=== PATIENT | male | born 1965 | race Hispanic/Latino ===

== ENCOUNTER 2020-06-29 18:36 | Emergency (ER) | payer BC ==
[~2020-06-29] VITALS: Ht 167.6 cm; Wt 93.4 kg
[2020-06-29] MEDS ORDERED: DECADRON2 MG PO (20:31)
[2020-06-29] MEDS ORDERED: ZPAK PO (20:31)
[2020-06-29 20:34] VITALS: BP 133/65
== END 2020-06-29 20:41 | disposition home or self-care (01) | DRG 179 ==
LOC: ED 18:36
DX: U07.1 COVID-19 (principal)